=== PATIENT | female | born 1985 | race African-American/Black ===

== ENCOUNTER 2018-05-12 10:19 | Emergency (ER) | payer BC ==
--- NOTE | 2018-05-12 11:15 | CT ---
CT BRAIN: DATE: 05/12/2018. PROVIDED CLINICAL HISTORY: Neck pain and right-sided facial droop. FINDINGS: Comparison 09/18/2003. The ventricular system appears normal in size and morphology. There is no ranjeet dence for intracranial hemorrhage or mass effect. The extracranial soft tissues and osseous structur es demonstrate an unremarkable CT appearance. IMPRESSION: No evidence for intracranial hemorrhage or mass effect. Findings communicated to Dr. Juarez via telephone 10:31 a.m. 05/12/2018. CODE CR POS: [facility]
[2018-05-12] MEDS ORDERED: Ketorolac Tromethamine 30 MG/ML VIAL ONE (11:34)
[2018-05-12] MEDS ORDERED: diphenhydrAMINE 50 MG/ML VIAL ONE (11:34)
[2018-05-12] MEDS ORDERED: Metoclopramide HCl 10 MG/2 ML VIAL ONE (11:34)
--- NOTE | 2018-05-12 11:42 | CT ---
CT ANGIOGRAM OF THE NECK WITHAND WITHOUT IV CONTRAST AND 3D MIP RECONSTRUCTIONS CT ANGIOGRAM BRAIN WITH AND WITHOUT IV CONTRAST AND 3D MIP RECONSTRUCTIONS: PROVIDED CLINICAL HISTORY: Right-sided facial droop and neck pain. FINDINGS: There is a normal 3-vessel origin of the great vessels at the ach. The subclavian, common carotid, i nternal carotid, and vertebral arteries demonstrate a normal CT angiographic appearance. Portions of the cervical internal carotid arteries are suboptimally visualized due to beam hardening artifact fr om dental amalgam. CT angiogram brain demonstrates no evidence for focal stenosis, branch occlusion or aneurysm. IMPRESSION: 1. Normal CT angiogram great vessels neck. 2. Normal CT angiogram brain. POS: [facility]
[2018-05-12 12:00] LABS: #Basophils 0.1 thou/uL (0.0-0.2); #Eosinphils 0.3 thou/uL (0.0-0.7); #Lymphocytes 2.8 thou/uL (1.20-3.40); #Monocytes 0.6 thou/uL (0.11-0.59); #Neutrophils 4.6 thou/uL (1.40-6.50); %Basophils 1.4 % (0.0-1.0); %Eosinophils 3.7 % (0.0-10.0); %Lymphocytes 33.3 % (21.0-51.0); %Monocytes 6.7 % (0.0-10.0); %Neutrophils 54.9 % (42.0-75.0); Hemoglobin 12.9 g/dL (12.0-16.0); Mean Corpuscular Hemoglobin 28.3 pg (27.0-31.0); Mean Platelet Volume 7.5 fL (7.4-10.4); Platelet Count 291 thou/uL (130-400); RBC Distribution Width 14.1 % (11.5-14.5); Red Blood Cell (RBC) Count 4.56 mill/uL (4.20-5.40); White Blood Cell (WBC) Count 8.4 thou/uL (4.8-10.8)
[2018-05-12 12:22] LABS: ALT (SGPT) 17 U/L (8-55); AST (SGOT) 16 U/L (5-34); Albumin 4.1 g/dL (3.5-5.0); Alkaline Phosphatase 90 U/L (40-150); Anion Gap 14 mmol/L (10-20); BUN (Urea Nitrogen) 10 mg/dL (7.0-18.7); Bilirubin, Total 0.5 mg/dL (0.2-1.2); Calc. Creatinine Clearance 0 mL/min (70-130); Calcium 9.1 mg/dL (7.8-10.44); Carbon Dioxide 19 mmol/L (22-29); Chloride 106 mmol/L (98-107); Estimated GFR-MDRD Greater than 90; Globulin 2.8 g/dL (2.4-3.5); Glucose 80 mg/dL (70-105); Potassium 4.1 mmol/L (3.5-5.1); Protein, Total 6.9 g/dL (6.0-8.3); Sodium 135 mmol/L (136-145)
[2018-05-12] MEDS ORDERED: methylPREDNISolone Sod Succ/PF 125 MG/2 ML VIAL ONE (12:57)
[2018-05-12] MEDS ORDERED: Magnesium 2 GM/50 ML 2 GM in Premix Bag 1 BAG IVPB SCH (13:15)
[2018-05-12] MEDS ORDERED: Iopamidol 370 76% 100 ML VIAL ONE (13:55)
[2018-05-12] MEDS ORDERED: Valproate Sodium 1,500 MG in Sodium Chloride 0.9% 100 ML IVPB SCH (16:00)
== END 2018-05-12 19:37 | disposition home or self-care (01) ==
LOC: ERS 10:19
DX: G43.809 Other migraine, not intractable, without status migrainosus (principal)
CPT/HCPCS: 36415; 36416; 70450; 70496; 70498; 80053; 84484; 85025; 93005; 96361; 96365; 96367; 96375; J1200; J1885; J2765; J2930; J3475; J7050; Q9967

== ENCOUNTER 2020-11-25 14:38 | Outpatient (CLI) | payer BC | END 2020-11-25 14:39 | disposition home or self-care (01) | LOC: SCSMRI 14:38 | PROVIDERS: ATTEND Nurse Practitioner Family | DX: S89.91XD Unspecified injury of right lower leg, subsequent encounter (principal); M67.461 Ganglion, right knee; M71.21 Synovial cyst of popliteal space [Baker], right knee ==

== ENCOUNTER 2020-12-11 16:01 | Outpatient (CLI) | payer BC ==
[2020-12-11 17:10] LABS: #Eosinphils 0.2 10x3/uL (0.0-0.5); #Monocytes 0.8 10x3/uL (0.0-1.1); #Neutrophils 5.6 10x3/uL (1.5-8.4); %Basophils 0.3 % (0.0-2.0); %Eosinophils 2.2 % (0.0-6.0); %Lymphocytes 33.2 % (18.0-47.0); %Monocytes 8.1 % (0.0-10.0); %Neutrophils 55.8 % (40.0-75.0); Hemoglobin 12.1 g/dL (12.0-15.5); Mean Corpuscular HGB CONC 32.3 g/dL (32.0-36.0); Mean Corpuscular Hemoglobin 28.6 pg (27.0-33.0); Mean Corpuscular Volume 88.7 fl (81.6-98.3); Mean Platelet Volume 9.9 fl (7.4-10.4); Platelet Count 346 10x3/uL (150-450); RBC Distribution Width 14.8 % (11.5-14.5); Red Blood Cell (RBC) Count 4.23 10x6/uL (3.90-5.03); White Blood Cell (WBC) Count 10.1 10x3/uL (3.5-10.5)
[2020-12-11 17:23] LABS: BHCG - Serum Negative (NEGATIVE); Pregs Control Background? CLEAR/WHITE (CLR/WHITE); Pregs Control Bar Appear? YES (CONTROL BAR)
[2020-12-12 00:50] LABS: SARS-CoV-2 PCR by NAA Not Detected (NotDetected)
== END 2020-12-11 16:02 | disposition home or self-care (01) ==
LOC: LABBT 16:01
PROVIDERS: ATTEND Orthopaedic Surgery
DX: Z01.812 Encounter for preprocedural laboratory examination (principal); M67.461 Ganglion, right knee; Z20.822 Contact with and (suspected) exposure to COVID-19
CPT/HCPCS: 84703; 85025; U0003; U0005

== ENCOUNTER 2020-12-16 08:00 | Day surgery (SDC) | payer BC ==
[2020-12-15 11:35] VITALS: BMI 39.1
[2020-12-16] MEDS ORDERED: PROPOFOL 20 ML ONE (08:48)
[2020-12-16] MEDS ORDERED: Clindamycin/D5W 600 mg/50 ml Premix Bag ONE ×2 (09:30→09:35)
[2020-12-16] MEDS ORDERED: Bupivacaine 0.25% HCL 30 ML VIAL ONE (09:32)
[2020-12-16] MEDS ORDERED: EPINEPHrine 1 MG/ML AMP ONE (09:32)
[2020-12-16] MEDS ORDERED: Bupivacaine PF 0.5% 30 ML VIAL ONE (09:32)
[2020-12-16] MEDS ORDERED: PROPOFOL 200 MG/20 ML VIAL ONE (09:51)
[2020-12-16] MEDS ORDERED: Lidocaine 1% PF 5 ML VIAL ONE (09:51)
[2020-12-16] MEDS ORDERED: Lidocaine 2% w/Epinephrine 1:200K 20 ML VIAL ONE (09:51)
[2020-12-16] MEDS ORDERED: Ketorolac Tromethamine 30 MG/ML VIAL ONE (09:51)
[2020-12-16] MEDS ORDERED: Bupivacaine HCl 0.5%/Epinephrine 1:200,000/PF 30 ml Vial ONE (09:51)
[2020-12-16] MEDS ORDERED: Ondansetron PF 4 MG/2 ML Vial ONE ×2 (09:51→10:21)
[2020-12-16] MEDS ORDERED: Meperidine HCl/PF 25 MG/ML VIAL ONE (10:43)
[2020-12-16] MEDS ORDERED: Morphine 4 MG/ML VIAL ONE (11:11)
[2020-12-16] MEDS ORDERED: HYDROcodone/Acetaminophen 5/325 mg Tablet ONE (12:43)
== END 2020-12-16 13:45 | disposition home or self-care (01) ==
LOC: SDC 08:00
PROVIDERS: ATTEND Orthopaedic Surgery
PROC: 0SBC4ZZ Excision of Right Knee Joint, Percutaneous Endoscopic Approach (ICD-10-PCS; principal; 2020-12-16)
DX: M67.461 Ganglion, right knee (principal); Z79.899 Other long term (current) drug therapy; Z88.0 Allergy status to penicillin; Z88.1 Allergy status to other antibiotic agents
CPT/HCPCS: J0171; J1885; J2175; J2270; J2405; J2704; J3490; S0020